=== PATIENT | male | born 2000 | race African-American/Black ===

== ENCOUNTER 2020-01-26 07:36 | Emergency (ER) | payer BC, OTHER ==
[~2020-01-26] VITALS: Ht 182.9 cm; Wt 90.6 kg
[2020-01-26 07:40] VITALS: BP 156/73
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
== END 2020-01-26 08:00 | disposition home or self-care (01) ==
LOC: ER FS 07:38
DX: S00.83XA Contusion of other part of head, initial encounter (principal); K03.81 Cracked tooth; Y04.2XXA Assault by strike against or bumped into by another person, initial encounter
CPT/HCPCS: 99281